=== PATIENT | female | born 1960 | race African-American/Black ===

== ENCOUNTER 2022-11-02 17:51 | Emergency (ER) | payer MEDICARE, MEDICAID ==
[~2022-11-02] VITALS: Ht 170.2 cm; Wt 61.0 kg
[2022-11-02 17:54] VITALS: BP 185/101
== END 2022-11-02 23:33 | disposition left against medical advice (07) ==
LOC: ER 18:09
DX: Z53.21 Procedure and treatment not carried out due to patient leaving prior to being seen by health care provider (principal)